=== PATIENT | male | born 1990 | race Caucasian/White ===

== ENCOUNTER 2016-06-29 02:14 | Emergency (ER) | payer OTHER ==
[~2016-06-29] VITALS: Ht 167.6 cm; Wt 70.5 kg
[~2016-06-29 02:14] MED LIST: IBUP-1827 PO
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
[2016-06-29] MEDS ORDERED: 0.9% Sodium Chloride 1,000 ML IV ONE (02:18)
[2016-06-29 02:32] LABS: BASOPHILS % (AUTO) 0.2 % (0-3); EOSINOPHILS % (AUTO) 0.3 % (0-5); MONOCYTES % (AUTO) 9.5 % (4-12); Mean Corpuscular Hemoglobin 32.3 pg (27.0-35.0); Mean Corpuscular Volume 89.7 fL (81-100); NEUTROPHILS % (AUTO) 74.3 % (40-74); Platelet Count 207 bil/L (150-400)
[2016-06-29] MEDS: HYDROmorphone 1 mg/mL Inj IVPUSH PRN ×2 (02:34→03:09)
[2016-06-29 02:52] LABS: INR 0.98 ratio
[2016-06-29 02:58] LABS: TROPONIN T 0.01 ug/L (0.0-0.011)
[2016-06-29 03:11] LABS: Magnesium 2.2 mg/dL (1.6-2.6)
[2016-06-29 04:02] VITALS: BP 106/58; PULSE 85; RESP 18; O2SAT 95
[2016-06-29] MEDS ORDERED: _HYDROcodone/APAP 5-325 mg Tablet PO PRN (04:25)
[2016-06-29] MEDS ORDERED: IBUP-1827 PO (04:28)
[2016-06-29] MEDS ORDERED: Ondansetron 2 mg/mL 2 mL Inj ONE (04:38)
[2016-06-29] MEDS ORDERED: Ondansetron 2 mg/mL 2 mL Inj IVPUSH ONE (04:45)
[2016-06-29 04:57] VITALS: BP 111/70; PULSE 80; RESP 16; O2SAT 96
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
== END 2016-06-29 04:58 | disposition home or self-care (01) ==
LOC: SED 02:14
DX: S20.212A Contusion of left front wall of thorax, initial encounter (principal); S09.90XA Unspecified injury of head, initial encounter; S01.311A Laceration without foreign body of right ear, initial encounter; F10.120 Alcohol abuse with intoxication, uncomplicated; V48.5XXA Car driver injured in noncollision transport accident in traffic accident, initial encounter; Y93.89 Activity, other specified; Y92.410 Unspecified street and highway as the place of occurrence of the external cause; Y99.8 Other external cause status; F17.200 Nicotine dependence, unspecified, uncomplicated; Z88.2 Allergy status to sulfonamides
CPT/HCPCS: 12011; 36415; 70450; 71010; 71260; 72125; 74177; 80053; 83690; 83735; 84484; 85025; 85610; 85730; 86850; 93005; 94640; 96361; 96374; 96375; 96376; 99285; G0480; J1170; J2405; J7030; Q9967

== ENCOUNTER 2016-07-05 17:00 | Emergency (ER) | payer SELFPAY ==
[~2016-07-05] VITALS: Ht 177.8 cm; Wt 70.5 kg
[2016-07-05 17:03] VITALS: BP 126/76; PULSE 87; RESP 20; O2SAT 100
== END 2016-07-05 17:27 | disposition home or self-care (01) ==
LOC: SED 17:00
DX: Z48.02 Encounter for removal of sutures (principal)